=== PATIENT | female | born 1970 | race African-American/Black ===

== ENCOUNTER 2023-12-28 16:37 | Inpatient (IN) | payer OTHER ==
[~2023-12-28 16:37] MED LIST: Iopamidol-370 76% 500 ML MDV (1 ML CHARGE) ONE
[2023-12-28] MEDS ORDERED: Ondansetron ODT 4 MG TAB PO PRN (18:31)
[2023-12-28] MEDS ORDERED: Ondansetron PF 4 MG/2 ML Vial IVP PRN (18:31)
[2023-12-28] MEDS ORDERED: Acetaminophen 325 MG TAB PO PRN (18:31)
[2023-12-28] MEDS ORDERED: Nitroglycerin 0.4 MG TAB (25 Tab Bottle) SL PRN (18:32)
[2023-12-28 19:34] LABS: Troponin I 0.122 ng/mL (< 0.028)
[2023-12-28] MEDS: Morphine 2 MG/ML VIAL SLOW IVP PRN (19:51)
[2023-12-28] MEDS: Ketorolac Tromethamine 30 MG (1 mL) VIAL IVP SCH (19:52)
[2023-12-28 22:10] VITALS: BMI 446240.2
[2023-12-28] MEDS: Chlorthalidone 25 MG TAB PO SCH (22:21)
[2023-12-28] MEDS: Losartan 25 MG TAB PO SCH (22:22)
[2023-12-29] MEDS: Enoxaparin 120 MG/0.8 ML SYRINGE SC SCH (02:21)
[2023-12-29 04:29] LABS: #Basophils 0.05 10x3/uL (0.0-0.2); %Basophils 0.6 % (0.0-1.0); %Eosinophils 6.2 % (0.0-10.0); %Lymphocytes 33.5 % (21.0-51.0); %Monocytes 10.3 % (0.0-10.0); %Neutrophils 48.9 % (42.0-75.0); Hematocrit 37.5 % (36.0-47.0); Hemoglobin 12.7 g/dL (12.0-16.0); Mean Corpuscular HGB CONC 33.9 g/dL (32.0-36.0); Mean Corpuscular Volume 76.8 fL (78.0-98.0); Mean Platelet Volume 10.5 fL (7.4-10.4); Platelet Count 207 10x3/uL (130-400); RBC Distribution Width 15.2 % (11.5-14.5); Red Blood Cell (RBC) Count 4.88 mill/uL (4.20-5.40)
[2023-12-29 04:40] LABS: Hemoglobin A1c 5.5 % (4.0-6.0)
[2023-12-29 04:57] LABS: Anion Gap 11 mmol/L (10-20); BUN (Urea Nitrogen) 13 mg/dL (9.8-20.1); Calc. Creatinine Clearance 141 mL/min (70-130); Calcium 8.9 mg/dL (7.8-10.44); Carbon Dioxide 25 mmol/L (22-29); Cardiac Risk 4.1 (Less than 4.5); Chloride 104 mmol/L (98-107); Cholesterol 202 mg/dl (< 200 Desired); Estimated GFR 80; Glucose 108 mg/dL (70-105); HDL Cholesterol 49 mg/dL (>60 Neg Risk); LDL Cholesterol, Calculated 136 mg/dL; Potassium 3.3 mmol/L (3.5-5.1); Sodium 137 mmol/L (136-145); Triglycerides 86 mg/dL (Less than 150)
[2023-12-29] MEDS: Losartan 25 MG TAB PO SCH (08:17)
[2023-12-29] MEDS: Chlorthalidone 25 MG TAB PO SCH (08:17)
[2023-12-29] MEDS: Aspirin 81 mg Enteric Coated Tablet PO SCH (08:17)
[2023-12-29] MEDS ORDERED: Aspirin 325 mg Enteric Coated Tablet PO SCH (09:00)
[2023-12-29] MEDS: Potassium Chloride 20 MEQ TAB PO SCH (09:00)
[2023-12-29] MEDS: FLU (Fluarix Triv) TS24-25(6MOS UP)/PF 45 MCG/0.5 ML Syringe IM ONE (12:00)
[2023-12-29] MEDS: NIFEdipine XL 60 MG ER.TAB PO SCH ×2 (12:00→20:22)
[2023-12-29] MEDS: Carvedilol 6.25 MG TAB PO SCH (16:11)
[2023-12-29] MEDS: Atorvastatin Calcium 40 MG TAB PO SCH (20:22)
[2023-12-29] MEDS: ALPRAZolam 0.25 MG TAB PO SCH (20:22)
[2023-12-30 05:42] LABS: #Basophils 0.03 10x3/uL (0.0-0.2); %Basophils 0.4 % (0.0-1.0); %Eosinophils 6.2 % (0.0-10.0); %Lymphocytes 28.8 % (21.0-51.0); %Monocytes 7.2 % (0.0-10.0); %Neutrophils 57.1 % (42.0-75.0); Hematocrit 38.8 % (36.0-47.0); Hemoglobin 13.3 g/dL (12.0-16.0); Mean Corpuscular HGB CONC 34.3 g/dL (32.0-36.0); Mean Corpuscular Hemoglobin 26.2 pg (27.0-31.0); Mean Corpuscular Volume 76.5 fL (78.0-98.0); Mean Platelet Volume 10.1 fL (7.4-10.4); Platelet Count 210 10x3/uL (130-400); Red Blood Cell (RBC) Count 5.07 mill/uL (4.20-5.40)
[2023-12-30 07:07] LABS: Anion Gap 11 mmol/L (10-20); BUN (Urea Nitrogen) 9 mg/dL (9.8-20.1); Calc. Creatinine Clearance 157 mL/min (70-130); Calcium 9.1 mg/dL (7.8-10.44); Carbon Dioxide 24 mmol/L (22-29); Chloride 103 mmol/L (98-107); Estimated GFR 92; Glucose 104 mg/dL (70-105); Potassium 3.4 mmol/L (3.5-5.1); Sodium 135 mmol/L (136-145)
[2023-12-30] MEDS ORDERED: NIFEdipine XL 60 MG ER.TAB PO SCH (09:00)
[2023-12-30] MEDS ORDERED: Regadenoson 0.4 MG/5 ML SYRINGE ONE (10:19)
[2023-12-30] MEDS: Enoxaparin 40 MG (0.4 mL) SYRINGE SC SCH (11:50)
[2023-12-30] MEDS: Magnesium Oxide 400 MG TAB PO SCH (11:50)
[2023-12-30] MEDS: Carvedilol 25 MG TAB PO SCH ×2 (11:53→16:29)
[2023-12-30] MEDS: Potassium Chloride 20 MEQ TAB PO SCH (11:55)
[2023-12-30] MEDS: Potassium Bicarbonate/Cit Ac 20 MEQ TAB PO SCH (12:05)
[2023-12-31 05:27] LABS: Anion Gap 16 mmol/L (10-20); BUN (Urea Nitrogen) 10 mg/dL (9.8-20.1); Calc. Creatinine Clearance 133 mL/min (70-130); Calcium 9.4 mg/dL (7.8-10.44); Carbon Dioxide 26 mmol/L (22-29); Chloride 101 mmol/L (98-107); Estimated GFR 75; Glucose 121 mg/dL (70-105); Magnesium 2.1 mg/dL (1.6-2.6); Potassium 3.4 mmol/L (3.5-5.1); Sodium 140 mmol/L (136-145)
[2023-12-31] MEDS: Potassium Bicarbonate/Cit Ac 20 MEQ TAB PO SCH (08:33)
[2023-12-31] MEDS: Carvedilol 25 MG TAB PO SCH (08:34)
[2024-01-01] MEDS: Potassium Chloride 20 MEQ TAB PO SCH (09:04)
[2024-01-01 09:51] VITALS: TEMP 97.6
[2024-01-01 11:08] VITALS: BP 121/76
== END 2024-01-01 11:32 | disposition home or self-care (01) | DRG 281 ==
LOC: 2NO 17:46 → UNDOADMIN 17:46 → 2NO 12-30 08:17
PROVIDERS: ADMIT Internal Medicine; ATTEND Internal Medicine
DX: R07.9 Chest pain, unspecified (principal); I42.9 Cardiomyopathy, unspecified; I21.A1 Myocardial infarction type 2; Z68.41 Body mass index [BMI] 40.0-44.9, adult; I50.22 Chronic systolic (congestive) heart failure; E66.01 Morbid (severe) obesity due to excess calories; E87.6 Hypokalemia; F41.9 Anxiety disorder, unspecified; I11.0 Hypertensive heart disease with heart failure; Z98.890 Other specified postprocedural states; Z98.51 Tubal ligation status; Z82.49 Family history of ischemic heart disease and other diseases of the circulatory system; Z83.3 Family history of diabetes mellitus
CPT/HCPCS: 36415; 71275; 78452; 80048; 80061; 83036; 83735; 85025; 90656; 93017; 93306; A9500; J1650; J1885; J2272; J2785; Q9967

== ENCOUNTER 2024-10-30 23:49 | Inpatient (IN) | payer BC, OTHER ==
[2024-10-31 01:23] LABS: Troponin I 0.075 ng/mL (< 0.028)
[2024-10-31] MEDS ORDERED: niCARdipine 25 MG in Sodium Chloride 0.9% 250 ML 250 ML IVPB SCH (01:30)
[2024-10-31] MEDS ORDERED: Aspirin Chewable 81 MG TAB ONE (01:32)
[2024-10-31] MEDS ORDERED: Ondansetron PF 4 MG/2 ML Vial IVP PRN (01:34)
[2024-10-31] MEDS ORDERED: Calcium Carbonate 500 MG ChewTAB PO PRN (01:34)
[2024-10-31] MEDS ORDERED: niCARdipine 25 MG/10 ML SDV ONE (01:36)
[2024-10-31] MEDS ORDERED: Electrolyte Replacement Protocol 1 EACH FS PRN (01:45)
[2024-10-31 02:04] VITALS: BMI 46.7
[2024-10-31 03:36] LABS: #Basophils 0.06 10x3/uL (0.0-0.2); #Eosinophils 0.37 10x3/uL (0.0-0.7); #Monocytes 0.58 10x3/uL (0.11-0.59); #Neutrophils 4.47 10x3/uL (1.40-6.50); %Basophils 0.7 % (0.0-1.0); %Eosinophils 4.5 % (0.0-10.0); %Lymphocytes 33.3 % (21.0-51.0); %Monocytes 7.0 % (0.0-10.0); %Neutrophils 54.1 % (42.0-75.0); Hematocrit 39.5 % (36.0-47.0); Hemoglobin 13.6 g/dL (12.0-16.0); Mean Corpuscular Hemoglobin 27.1 pg (27.0-31.0); Mean Corpuscular Volume 78.7 fL (78.0-98.0); Platelet Count 193 10x3/uL (130-400); Red Blood Cell (RBC) Count 5.02 mill/uL (4.20-5.40); White Blood Cell (WBC) Count 8.26 10x3/uL (4.8-10.8)
[2024-10-31 03:52] LABS: AST (SGOT) 20 U/L (11-34); Albumin 3.7 g/dL (3.1-4.5); Alkaline Phosphatase 82 U/L (40-110); Anion Gap 15 mmol/L (10-20); BUN (Urea Nitrogen) 10 mg/dL (9.8-20.1); Bilirubin, Total 1.0 mg/dL (0.3-1.2); Calc. Creatinine Clearance 167 mL/min (70-130); Calcium 8.7 mg/dL (7.8-10.44); Carbon Dioxide 20 mmol/L (22-29); Chloride 107 mmol/L (98-107); Globulin 3.9 g/dL (2.4-3.5); Glucose 107 mg/dL (70-105); Magnesium 1.8 mg/dL (1.6-2.6); Potassium 3.2 mmol/L (3.5-5.1); Sodium 139 mmol/L (136-145)
[2024-10-31 04:14] LABS: ALT (SGPT) 15 U/L (Less than 34)
[2024-10-31] MEDS ORDERED: Carvedilol 25 MG TAB PO SCH (08:00)
[2024-10-31] MEDS ORDERED: Losartan 25 MG TAB PO SCH (09:00)
[2024-10-31] MEDS ORDERED: NIFEdipine XL 60 MG ER.TAB PO SCH (09:00)
[2024-10-31] MEDS: Aspirin 81 mg Enteric Coated Tablet PO SCH (09:33)
[2024-10-31] MEDS: Magnesium 2 GM/50 ML(in water) 2 GM in Premix 1 BAG IVPB SCH (09:34)
[2024-10-31] MEDS: Carvedilol 6.25 MG TAB PO SCH (09:34)
[2024-10-31] MEDS: Sacubitril 24MG/Valsartan 26 MG TAB PO SCH (09:34)
[2024-10-31] MEDS: Spironolactone 25 MG TAB PO SCH (15:05)
[2024-10-31] MEDS: Sacubitril 49 MG/Valsartan 51 MG TABLET PO SCH (20:53)
[2024-11-01 04:55] LABS: Magnesium 2.2 mg/dL (1.6-2.6); Potassium 3.8 mmol/L (3.5-5.1)
[2024-11-01 05:08] LABS: Free T4 (Free Thyroxine) 0.97 ng/dL (0.70-1.48); Thyroid Stimulating Hormone 2.5582 uIU/mL (0.35-4.94)
[2024-11-01] MEDS: Spironolactone 25 MG TAB PO SCH (08:07)
[2024-11-01] MEDS: Sacubitril 49 MG/Valsartan 51 MG TABLET PO SCH (21:08)
[2024-11-01] MEDS: Acetaminophen 325 MG TAB PO PRN (21:09)
[2024-11-02] MEDS ORDERED: Nitroglycerin 2% Ointment 1 INCH/1 GM Packet TOP PRN (02:49)
[2024-11-02 05:03] LABS: Troponin I 0.070 ng/mL (< 0.028)
[2024-11-02 05:05] LABS: Anion Gap 15 mmol/L (10-20); BUN (Urea Nitrogen) 14 mg/dL (9.8-20.1); Calc. Creatinine Clearance 136 mL/min (70-130); Calcium 8.9 mg/dL (7.8-10.44); Carbon Dioxide 20 mmol/L (22-29); Chloride 108 mmol/L (98-107); Glucose 106 mg/dL (70-105); Potassium 3.6 mmol/L (3.5-5.1); Sodium 139 mmol/L (136-145)
[2024-11-02] MEDS: Carvedilol 3.125 MG TAB PO SCH (17:42)
[2024-11-03 05:55] LABS: Chloride 106 mmol/L (98-107); Potassium 3.9 mmol/L (3.5-5.1); Sodium 140 mmol/L (136-145)
[2024-11-03 05:57] LABS: BUN (Urea Nitrogen) 16 mg/dL (9.8-20.1); Calc. Creatinine Clearance 125 mL/min (70-130); Calcium 8.6 mg/dL (7.8-10.44); Carbon Dioxide 23 mmol/L (22-29); Glucose 106 mg/dL (70-105); Magnesium 2.2 mg/dL (1.6-2.6)
[2024-11-03 06:02] LABS: Anion Gap 17 mmol/L (10-20)
[2024-11-03] MEDS: Spironolactone 25 MG TAB PO SCH (08:00)
[2024-11-03] MEDS ORDERED: Communication Order-Pharmacy FS SCH (08:45)
[2024-11-04 04:47] LABS: #Basophils 0.04 10x3/uL (0.0-0.2); #Eosinophils 0.27 10x3/uL (0.0-0.7); #Monocytes 0.64 10x3/uL (0.11-0.59); #Neutrophils 2.74 10x3/uL (1.40-6.50); %Basophils 0.6 % (0.0-1.0); %Eosinophils 4.1 % (0.0-10.0); %Lymphocytes 44.2 % (21.0-51.0); %Monocytes 9.7 % (0.0-10.0); %Neutrophils 41.2 % (42.0-75.0); Hematocrit 40.9 % (36.0-47.0); Hemoglobin 13.9 g/dL (12.0-16.0); Mean Corpuscular Hemoglobin 26.3 pg (27.0-31.0); Mean Corpuscular Volume 77.5 fL (78.0-98.0); Platelet Count 245 10x3/uL (130-400); Red Blood Cell (RBC) Count 5.28 mill/uL (4.20-5.40); White Blood Cell (WBC) Count 6.63 10x3/uL (4.8-10.8)
[2024-11-04 05:32] LABS: Anion Gap 13 mmol/L (10-20); BUN (Urea Nitrogen) 14 mg/dL (9.8-20.1); Calc. Creatinine Clearance 138 mL/min (70-130); Calcium 8.6 mg/dL (7.8-10.44); Carbon Dioxide 22 mmol/L (22-29); Chloride 107 mmol/L (98-107); Glucose 104 mg/dL (70-105); Potassium 4.3 mmol/L (3.5-5.1); Sodium 138 mmol/L (136-145)
[2024-11-04] MEDS ORDERED: PHENYLEPHRINE-NS 100 MCG/ML 10 ML SYRINGE ONE (06:20)
[2024-11-04] MEDS ORDERED: Lidocaine 1% (PF) 30 ML VIAL ONE ×2 (06:20→07:35)
[2024-11-04] MEDS ORDERED: EPINEPHrine 1 MG/10 ML Abboject SYRINGE ONE (06:20)
[2024-11-04] MEDS ORDERED: Heparin 10,000 UNITS/ 10 ML VIAL ONE (06:20)
[2024-11-04] MEDS ORDERED: Adenosine 6 mg (2 mL) VIAL ONE (06:20)
[2024-11-04] MEDS ORDERED: Nitroglycerin 50 MG/250 ML BOT 0 ML ONE (06:20)
[2024-11-04] MEDS ORDERED: hydrALAZINE 20 MG/ML VIAL ONE (08:16)
[2024-11-04] MEDS ORDERED: Iopamidol 370 76% 100 ML VIAL ONE (09:56)
[2024-11-04 14:38] VITALS: TEMP 97.9
[2024-11-04 20:34] VITALS: BP 152/91
== END 2024-11-04 21:04 | disposition home or self-care (01) | DRG 280 ==
LOC: ERS 23:49 → ERHOLD 10-31 01:33 → 2NO 10-31 09:16
PROVIDERS: ADMIT Student in an Organized Health Care Education/Training Program; ATTEND Emergency Medicine
PROC: 4A023N7 Measurement of Cardiac Sampling and Pressure, Left Heart, Percutaneous Approach (ICD-10-PCS; principal; 2024-11-04)
PROC: B2151ZZ Fluoroscopy of Left Heart using Low Osmolar Contrast (ICD-10-PCS; 2024-11-04)
PROC: B2111ZZ Fluoroscopy of Multiple Coronary Arteries using Low Osmolar Contrast (ICD-10-PCS; 2024-11-04)
PROC: 3E033XZ Introduction of Vasopressor into Peripheral Vein, Percutaneous Approach (ICD-10-PCS; 2024-11-04)
DX: I11.0 Hypertensive heart disease with heart failure (principal); I50.43 Acute on chronic combined systolic (congestive) and diastolic (congestive) heart failure; I21.A1 Myocardial infarction type 2; I16.1 Hypertensive emergency; Z68.42 Body mass index [BMI] 45.0-49.9, adult; E66.01 Morbid (severe) obesity due to excess calories; F41.9 Anxiety disorder, unspecified; I42.0 Dilated cardiomyopathy; E87.6 Hypokalemia; Z98.890 Other specified postprocedural states; Z98.51 Tubal ligation status
CPT/HCPCS: 36415; 80048; 80053; 83735; 83880; 84132; 84439; 84443; 84481; 84484; 85025; 85347; 93005; 93010; 93306; 93458; 93571; 93798; 94760; 96365; 96366; 97139; 99152; 99153; C1769; C1887; J0153; J0165; J0360; J0461; J1644; J2250; J3010; J3475; Q9967